=== PATIENT | female | born 1965 | race Caucasian/White ===

== ENCOUNTER → 2018-10-24 09:00 | Outpatient (CLI) | payer OTHER, SELFPAY ==
--- NOTE | 2018-10-24 09:10 | XR_ITS ---
XR knee LT 4V HISTORY: ITS.REASON: left knee pain ORDERING PHYSICIAN: Abida Sheets MD PATIENT AGE: 53 years COMPARISON: None FINDINGS: No fracture or dislocation. No lytic or blastic change. Normal mineralization. There is mild/moderate narrowing of the medial joint compartment with mild medial tibial plateau subchondral sclerosis. There are small medial and lateral tibial plateau spur. There is also posterior superior small patellar spur. No other significant findings IMPRESSION: Degenerative changes as discussed above primarily involving medial compartment of the femoral/tibial joint.
== END ==
PROVIDERS: Visit Provider Orthopaedic Surgery
DX: M25.562 Pain in left knee (principal)
CPT/HCPCS: 73564